=== PATIENT | female | born 1995 | race Caucasian/White ===

== ENCOUNTER 2016-05-14 03:30 | Emergency (ER) | payer OTHER ==
[~2016-05-14] VITALS: Ht 162.5 cm; Wt 68.0 kg
[~2016-05-14 03:30] MED LIST: AMOXICILLIN500 MG PO; ANAPROX DS550 MG PO; AUGMENTIN ES-6100 ML PO; BACTRIM DS 8001 TA1 PO; MACROBID100 M1 PO; MOTRIN400 MG PO; MOTRIN600 MG PO; NAPROSYN500 MG PO; NKHM; PEN-VEE K500 MG PO; PYRIDIUM200 M1 PO; VICODIN 5/500 505 MG PO; ZITHROMAX Z PA250 MG PO
[2016-05-14 04:06] LABS: BASO % 0.3 % (0.0-1.0); BILIRUBIN NEGATIVE (NEGATIVE); BLOOD NEGATIVE (NEGATIVE); CLARITY CLOUDY (CLEAR); COLOR YELLOW (YELLOW); EOS # 0.1 10*3/uL (0.0-0.4); EOS % 0.8 % (1.0-4.0); GLUCOSE NEGATIVE (NEGATIVE); HEMATOCRIT 36.9 % (37.0-47.0); KETONE NEGATIVE (NEGATIVE); LEUKO ESTERASE 1+ (NEGATIVE); LYMPH % 20.8 % (27.0-41.0); MEAN CELL VOLUME 87.9 fl (81.0-99.0); MEAN CORPUSCULAR HGB 28.6 pg (27.0-31.0); MEAN CORPUSCULAR HGB CONC 32.5 g/dl (33.0-37.0); MEAN PLATELET VOLUME 9.4 fl (9.6-12.3); MONO # 0.9 10*3/uL (0.1-1.0); MONO % 9.6 % (3.0-9.0); NEUT # 6.6 10*3/uL (2.3-7.9); NEUT % 68.3 % (47.0-73.0); NITRITE NEGATIVE (NEGATIVE); PH 5.5 (5.0-9.0); PLATELET COUNT AUTOMATED 253 10*3/uL (130-400); PROTEIN TRACE (NEGATIVE); RED CELL DISTRI WIDTH 14.4 % (0-14.5); SPECIFIC GRAVITY >= 1.030 (1.005-1.030); UROBILINOGEN 0.2 E.U./dl (0.2-1.0); WHITE BLOOD COUNT 9.7 10*3/uL (4.8-10.8)
[2016-05-14 04:13] LABS: BACTERIA 3+; EPITHELIAL CELLS 31-40; RBC 0-2 rbc/hpf (0-2); URINE REFLEX COMMENT YES (NO); WBC 21-30 wbc/hpf (0-5)
[2016-05-14 04:14] LABS: CALCIUM OXALATE CRYSTALS 1+
[2016-05-14 04:24] LABS: ALBUMIN 3.7 gm/dl (3.1-4.5); ALKALINE PHOSPHATASE 74 U/L (45-117); BILIRUBIN, TOTAL 0.3 mg/dl (0.2-1.0); BUN 8 mg/dl (7-24); C-REACTIVE PROTEIN 1.05 MG/DL (0-0.3); CARBON DIOXIDE 27 mmol/L (21-32); CHLORIDE 108 mmol/L (98-107); EST GLOM FILT AFRICAN AMERICAN > 60 ml/min; GLUCOSE 99 mg/dL (65-99); POTASSIUM 3.4 mmol/L (3.5-5.1); SGOT/AST 21 IU/L (3-35); SGPT/ALT 18 U/L (12-78); SODIUM 143 mmol/L (136-145); TOTAL PROTEIN 6.7 gm/dL (6.4-8.2)
[2016-05-14] MEDS ORDERED: MACROBID100 M1 PO (06:39)
[2016-05-14] MEDS ORDERED: ULTRAM50 MG PO (06:39)
== END 2016-05-14 06:43 | disposition home or self-care (01) ==
LOC: ED 03:30
PROVIDERS: Emergency Medicine Emergency Medical Services
DX: N39.0 Urinary tract infection, site not specified (principal); F17.200 Nicotine dependence, unspecified, uncomplicated

== ENCOUNTER 2018-05-07 19:11 | Emergency (ER) | payer SELFPAY ==
[~2018-05-07] VITALS: Ht 167.6 cm; Wt 68.0 kg
[~2018-05-07 19:11] MED LIST changes: +ULTRAM50 MG PO
[2018-05-07 19:31] LABS: BILIRUBIN NEGATIVE (NEGATIVE); BLOOD 3+ (NEGATIVE); CLARITY SL CLOUDY (CLEAR); COLOR YELLOW (YELLOW); GLUCOSE NEGATIVE (NEGATIVE); KETONE TRACE (NEGATIVE); LEUKO ESTERASE 1+ (NEGATIVE); NITRITE NEGATIVE (NEGATIVE); PH 6.5 (5.0-9.0); SPECIFIC GRAVITY 1.025 (1.005-1.030)
[2018-05-07 19:34] LABS: BASO % 0.3 % (0.0-1.0); EOS # 0.1 10*3/uL (0.0-0.4); EOS % 1.3 % (1.0-4.0); HEMATOCRIT 37.9 % (37.0-47.0); HEMOGLOBIN 12.5 g/dl (12.0-16.0); LYMPH # 2.3 10*3/uL (1.3-4.4); LYMPH % 23.2 % (27.0-41.0); MEAN CELL VOLUME 91.3 fl (81.0-99.0); MEAN CORPUSCULAR HGB 30.1 pg (27.0-31.0); MEAN PLATELET VOLUME 9.2 fl (9.6-12.3); MONO # 0.8 10*3/uL (0.1-1.0); MONO % 8.5 % (3.0-9.0); NEUT # 6.5 10*3/uL (2.3-7.9); NEUT % 66.3 % (47.0-73.0); PLATELET COUNT AUTOMATED 315 10*3/uL (130-400); RED BLOOD COUNT 4.15 10*6/uL (4.10-5.10); RED CELL DISTRI WIDTH 14.5 % (0-14.5); WHITE BLOOD COUNT 9.8 10*3/uL (4.8-10.8)
[2018-05-07 19:45] LABS: BACTERIA 1+; EPITHELIAL CELLS 16-20; RBC 21-30 rbc/hpf (0-2); WBC 41-50 wbc/hpf (0-5)
[2018-05-07 19:50] LABS: ALBUMIN 3.7 gm/dl (3.1-4.5); ALKALINE PHOSPHATASE 62 U/L (45-117); BUN 7 mg/dl (7-24); CHLORIDE 110 mmol/L (98-107); CREATININE 0.73 mg/dL (0.55-1.02); POTASSIUM 4.1 mmol/L (3.5-5.1); SGOT/AST 14 IU/L (3-35); SGPT/ALT 11 U/L (12-78); SODIUM 139 mmol/L (136-145); TOTAL PROTEIN 7.5 gm/dL (6.4-8.2)
[2018-05-07] MEDS ORDERED: MACROBID100 M1 PO (20:08)
== END 2018-05-07 20:10 | disposition home or self-care (01) ==
LOC: ED 19:11
PROVIDERS: Nurse Practitioner Family
DX: N93.8 Other specified abnormal uterine and vaginal bleeding (principal); N39.0 Urinary tract infection, site not specified

== ENCOUNTER → 2020-04-14 | Outpatient (CLI) | payer SELFPAY | END | disposition home or self-care (01) | LOC: COVID19 10:54 | PROVIDERS: ATTEND Student in an Organized Health Care Education/Training Program | DX: Z20.828 Contact with and (suspected) exposure to other viral communicable diseases (principal) ==

== ENCOUNTER 2023-08-03 15:16 | Emergency (ER) | payer MEDICAID ==
[~2023-08-03] VITALS: Ht 162.5 cm; Wt 81.6 kg
[2023-08-03] MEDS ORDERED: AMOX-CLAV 875-1 EACH PO (15:39)
== END 2023-08-03 15:50 | disposition home or self-care (01) ==
LOC: ED 15:16
DX: K04.7 Periapical abscess without sinus (principal)

== ENCOUNTER 2024-10-07 11:00 | Emergency (ER) | payer SELFPAY ==
[~2024-10-07] VITALS: Ht 157.4 cm; Wt 88.0 kg
[~2024-10-07 11:00] MED LIST changes: +AMOX-CLAV 875-1 EACH PO
[2024-10-07] MEDS ORDERED: Pantoprazole Sodium 40 MG VIAL IV ONE (11:45)
[2024-10-07] MEDS ORDERED: SODIUM CHLORIDE 0.9% 500 ML IV ONE (11:45)
[2024-10-07] MEDS ORDERED: Ondansetron Hydrochloride 4 MG/2 ML VIAL IV ONE ×2 (11:45→13:55)
[2024-10-07 12:04] LABS: BASO % 0.2 % (0.0-1.0); EOS % 0.2 % (1.0-4.0); HEMATOCRIT 41.4 % (37.0-47.0); MEAN CORPUSCULAR HGB 30.1 pg (27.0-31.0); MEAN CORPUSCULAR HGB CONC 33.1 g/dl (33.0-37.0); MEAN PLATELET VOLUME 8.6 fl (9.6-12.3); MONO # 0.9 10*3/uL (0.1-1.0); MONO % 7.1 % (3.0-9.0); NEUT # 10.5 10*3/uL (2.3-7.9); NEUT % 78.9 % (47.0-73.0); PLATELET COUNT AUTOMATED 385 10*3/uL (130-400); RED BLOOD COUNT 4.55 10*6/uL (4.10-5.10); RED CELL DISTRI WIDTH 13.3 % (0-14.5); WHITE BLOOD COUNT 13.3 10*3/uL (4.8-10.8)
[2024-10-07 12:21] LABS: ALKALINE PHOSPHATASE 79 U/L (46-116); BUN 8 mg/dl (9-23); CHLORIDE 100 mmol/L (98-107); LIPASE 35 U/L (12-53); POTASSIUM 3.4 mmol/L (3.4-5.1); SGPT/ALT 339 U/L (5-49); TOTAL PROTEIN 7.5 gm/dL (6.0-8.0)
[2024-10-07 12:36] LABS: BILIRUBIN Negative (Negative); BLOOD Negative (Negative); CLARITY Clear (Clear); COLOR Yellow (Yellow); GLUCOSE Negative (Negative); KETONE Negative (Negative); LEUKO ESTERASE Negative (Negative); NITRITE Negative (Negative); PH 5.5 (4.5-8.0); UROBILINOGEN 0.2 E.U./dl (0.0-1.0)
[2024-10-07] MEDS ORDERED: MORPHINE Sulfate 2 MG/ML SYR IV ONE (13:55)
[2024-10-07] MEDS ORDERED: Ondansetron4 MG PO (13:57)
[2024-10-07] MEDS ORDERED: TRAMADOL HCL50 MG PO (13:57)
[2024-10-07] MEDS ORDERED: PROTONIX40 MG PO (13:57)
[2024-10-07] MEDS ORDERED: CLINDAMYCIN HC300 MG PO (13:57)
== END 2024-10-07 14:48 | disposition home or self-care (01) ==
LOC: ED 11:00
PROVIDERS: Emergency Medicine
DX: K29.70 Gastritis, unspecified, without bleeding (principal); R74.01 Elevation of levels of liver transaminase levels; K02.9 Dental caries, unspecified; Z79.899 Other long term (current) drug therapy

== ENCOUNTER 2024-11-12 23:02 | Emergency (ER) | payer SELFPAY ==
[~2024-11-12 23:02] MED LIST changes: +CLINDAMYCIN HC300 MG PO; +Ondansetron4 MG PO; +PROTONIX40 MG PO; +TRAMADOL HCL50 MG PO
[2024-11-12] MEDS ORDERED: Ondansetron Hydrochloride 4 MG TAB PO ONE (23:15)
[2024-11-12] MEDS ORDERED: Tdap Vaccine 0.5 ML SYR (Adult Vaccine) IM ONE (23:15)
== END 2024-11-13 00:45 | disposition home or self-care (01) ==
LOC: ED 23:02
DX: S61.412A Laceration without foreign body of left hand, initial encounter (principal); Z79.899 Other long term (current) drug therapy; X58.XXXA Exposure to other specified factors, initial encounter; Y93.G3 Activity, cooking and baking; Y92.89 Other specified places as the place of occurrence of the external cause; Y99.8 Other external cause status